=== PATIENT | male | born 1950 | race Native Hawaiian/Other Pacific Islander ===

== ENCOUNTER 2017-02-18 07:13 | Day surgery (SDC) | payer OTHER ==
[2017-02-18 07:43] VITALS: BMI 20.8
[2017-02-18 08:09] VITALS: RESP 19; TEMP 97.6; O2SAT 100
--- NOTE | 2017-02-18 09:06 | CP.SDSHP ---
Same Day Surgery H & P - History Proposed Procedure: EGD/ REMOVAL OF FOR. BODY Pre-Op Diagnosis: SEE NOTES - Previous Medical/Surgical History Cardiac: Hypertension Endocrine/Metabolic: Diabetes Neuro: Backaches Misc: Other Previous Surgical History: CA OF THROAT/TONSEL. - Allergies Allergies: Allergies No Known Allergies Allergy (Verified 02/18/17 07:43) - Physical Exam General Appearance: N Vital Signs: Vital Signs 02/18/17 02/18/17 07:58 08:53 Temperature 97.6 F Pulse Rate 74 74 Respiratory 19 Rate Blood Pressure 133/74 O2 Sat by Pulse 100 Oximetry Mental Status: Alert & Oriented x3 Neuro: WNL Heart: Other Lungs: WNL GI: WNL - {Optional Preform as Required} Breast: WNL Abdomen: Other Rectal: Other Integument: WNL : WNL Ortho: Other ENT: WNL - Impression Pt. Evaluated Today:Candidate for Anesthesia & Procedure: Yes - Date & Time Time: 09:06 Short Stay Discharge - Short Stay Discharge Admitting Diagnosis/Reason for Visit: GASTROSTOMY MALFUNCTION Disposition: HOME/ ROUTINE
[2017-02-18] MEDS ORDERED: Propofol 10 mg/ml Inj (20 ML) ONE ×2 (09:08→09:16)
[2017-02-18] MEDS ORDERED: Bacitracin 500 Units/gm Oint Foilpak UD ONE (09:09)
[2017-02-18] MEDS ORDERED: metroNIDAZOLE IV 500 mg/100 ml 500 MG/100 ML BAG IVPB ONE (10:00)
[2017-02-18 10:40] VITALS: BP 118/67; PULSE 65
== END 2017-02-18 10:32 | disposition home or self-care (01) ==
LOC: C.ENDO 07:13
PROVIDERS: ATTEND Specialist
DX: K94.23 Gastrostomy malfunction (principal); R10.13 Epigastric pain; R12 Heartburn; T18.2XXA Foreign body in stomach, initial encounter; K29.70 Gastritis, unspecified, without bleeding
CPT/HCPCS: 43247; 82948; 88300; C9113; J2704